=== PATIENT | male | born 1960 | race Caucasian/White ===

== ENCOUNTER → 2016-11-12 | Day surgery (SDC) | payer OTHER ==
[~2016-11-12] VITALS: Ht 188 cm; Wt 130.2 kg
[~2016-11-12] MED LIST: 0.9% Sodium Chloride 1,000 ML IV SCH; DOXY20TA5 PO; LEVO100T97 PO; LISI-567 PO; Sodium Chloride LOK Flush 10 mL Syringe IV PRN; fentaNYL-PF 50 mCg/mL 2 mL Inj IVPUSH PRN
[2016-11-12 13:35] VITALS: BP 134/84; PULSE 55; RESP 12; O2SAT 96
[2016-11-12 14:37] VITALS: BP 97/62; PULSE 54; RESP 12; O2SAT 96
[2016-11-12 14:46] VITALS: BP 111/70; PULSE 54; RESP 14; O2SAT 96
[2016-11-12 14:57] VITALS: BP 119/74; PULSE 54; RESP 14; O2SAT 94
--- NOTE | 2016-11-13 11:04 | ENDO ---
[address] [address] ENDOSCOPY PROCEDURE PATIENT: TOMASZ SINGH : 1960 MR#: [id number] ADMIT: 11/12/2016 JOB ID: [id number] DATE: 11/12/2016 PRIMARY PROVIDER: Miguel Campos. PROCEDURE: Colonoscopy with cold forceps polypectomy. INDICATIONS: A 56-year-old male with a history of a 56-year-old male who reports for colon cancer screening. EQUIPMENT: PCF-H190DL SEDATION: 1. Versed 5 mg. 2. Fentanyl 100 mcg. COMPLICATIONS: None identified. BOWEL PREPARATION: Fair, adequate exam. PROCEDURE INFO: After the risks and benefits were explained, written and verbal informed consent was obtained. The patient was brought into the endoscopy suite and placed into the left lateral decubitus position. Sedation was achieved as above. Digital rectal examination accomplished. No significant pathology appreciated. The scope was introduced into the rectum and advanced to the cecum as identified by the appendiceal orifice and ileocecal valve. The scope was slowly withdrawn to carefully examine the mucosa for any defects or lesions. Multiple direct views were made through the dentate line for exclusion of pathology. The colon was decompressed. The scope removed from the patient who tolerated the procedure well. FINDINGS: Some diverticulosis was seen all through the left colon at around 61 cm from the anal verge there was a small focus of diverticulitis. I did not appreciate any significant mass lesions, colitis, or significant polyps throughout. There was one diminutive 4 mm polyp in the rectum removed with cold forceps. Mild internal hemorrhoids noted on direct views. ENDOSCOPIC DIAGNOSES: 1. Diverticulosis. 2. Mild focus of diverticulitis. 3. Rectal polyps. 4. Mild hemorrhoids. RECOMMENDATIONS: 1. Await histopathology. 2. If adenomatous features are identified, repeat colonoscopy will likely be suggested for five years' time. 3. In that the patient is in essence asymptomatic, no antibiotic therapy is required for the focus of mild diverticulitis seen. Cc: Miguel Campos
--- NOTE | 2016-11-14 14:26 | PATH ---
SURGICAL PATHOLOGY Attending Physician:Channing Martinez CASE STATUS: Signed Out PATIENT NAME: TOMASZ SINGH PID: [id number] : 1960 DATE COLLECTED:11/12/2016 00:00 SPECIMEN: Rectum, Biopsy CLINICAL HISTORY: 1). RECTAL POLYP FINAL DIAGNOSIS: Rectum, Polyp, Biopsy: Hyperplastic polyp. ICD10: K63.5 GROSS DESCRIPTION: The specimen is received in one formalin filled container labeled with the patient's name, sublabeled "rectal polyp" and consists of a 0.3 x 0.3 x 0.3 CM portion of tissue which is entirely submitted in one cassette. 11/13/2016DC ICD-9 CODES: CPT CODES: 1: 30291 Electronically Signed Out Flor Leon MD [facility] Pathology [facility] [address], [place] [address] Technical component performed at [facility], [facility] [address], [address]
== END | disposition home or self-care (01) ==
LOC: END 01:18
PROVIDERS: ATTEND Internal Medicine Gastroenterology
DX: Z12.11 Encounter for screening for malignant neoplasm of colon (principal); Z80.0 Family history of malignant neoplasm of digestive organs; K62.1 Rectal polyp; K64.8 Other hemorrhoids; K57.30 Diverticulosis of large intestine without perforation or abscess without bleeding; I10 Essential (primary) hypertension; E78.5 Hyperlipidemia, unspecified; E03.9 Hypothyroidism, unspecified; Z85.850 Personal history of malignant neoplasm of thyroid; E66.01 Morbid (severe) obesity due to excess calories; Z68.41 Body mass index [BMI] 40.0-44.9, adult
CPT/HCPCS: 45380; 99153; G0500; J2250; J3010; J7030